=== PATIENT | female | born 1975 | race Two or more races ===

== ENCOUNTER 2020-05-18 10:14 | Inpatient (IN) | payer OTHER ==
[~2020-05-18] VITALS: Ht 157.5 cm; Wt 68.0 kg
== END 2020-05-20 21:55 | disposition home or self-care (01) | DRG 812 ==
LOC: ER 10:14 → SURG 18:58 → MEDI 05-19 16:33
PROVIDERS: ADMIT Internal Medicine; ATTEND Internal Medicine
PROC: 30233N1 Transfusion of Nonautologous Red Blood Cells into Peripheral Vein, Percutaneous Approach (ICD-10-PCS; principal; 2020-05-19)
DX: D50.0 Iron deficiency anemia secondary to blood loss (chronic) (principal); N92.1 Excessive and frequent menstruation with irregular cycle; R00.2 Palpitations; F41.9 Anxiety disorder, unspecified; Z20.822 Contact with and (suspected) exposure to COVID-19

== ENCOUNTER 2021-07-10 13:49 | Inpatient (IN) | payer OTHER ==
[~2021-07-10] VITALS: Ht 160 cm; Wt 52.6 kg
[2021-07-12] MEDS ORDERED: FAMOTIDINE40 MG (10:24)
[2021-07-12] MEDS ORDERED: ST. JOSEPH ASPI81 M2 (10:24)
== END 2021-07-13 23:34 | disposition home or self-care (01) | DRG 812 ==
LOC: ER 13:49 → MEDI 21:51
PROVIDERS: ADMIT Internal Medicine; ATTEND Internal Medicine
PROC: 30233N1 Transfusion of Nonautologous Red Blood Cells into Peripheral Vein, Percutaneous Approach (ICD-10-PCS; principal; 2021-07-11)
PROC: 4A12X4Z Monitoring of Cardiac Electrical Activity, External Approach (ICD-10-PCS; 2021-07-11)
DX: D64.9 Anemia, unspecified (principal); D50.0 Iron deficiency anemia secondary to blood loss (chronic); R55 Syncope and collapse; Z20.822 Contact with and (suspected) exposure to COVID-19

== ENCOUNTER 2021-07-19 17:01 | Inpatient (IN) | payer OTHER ==
[~2021-07-19] VITALS: Ht 157.5 cm; Wt 54.4 kg
[~2021-07-19 17:01] MED LIST: FAMOTIDINE40 MG; ST. JOSEPH ASPI81 M2
--- NOTE | 2021-07-19 17:27 | NUR ---
SE RECIBE PTE ALERTA Y ORIENTADA X3 LA CUAL REFIERE VENIR POR ISAIAH EN ORINA DESDE BELINDA. PTE NIEGA ARDOR O MOLESITA AL ORINAR. SE MIDEN S/V A PTE Y SE COLOCA EN GE[place]GES DE ESPERA.
--- NOTE | 2021-07-19 20:42 | NUR ---
SE REALIZA JILLIAN DE MUESTRAS A PACIENTE BAJO MEDIDAS SEPTICAS Y DE SEGURIDAD. SE ADMISNITRAN MEDICAMENTOS JESSICA ORDEN MEDICA. SE ORIENTA A PACIENTE ACERCA DEL TRATAMIENTO OFRECIDO EN GEORGES DE EMERGENCIAS. SE MANTIENE PACIENTE EN GOERGES DE ESPERA PENDIENTE A RESULTADOS DE LABORATORIOS.
--- NOTE | 2021-07-20 00:45 | NUR ---
SE RECIBE PTE FEMENINA DE 46 YRS LA CUAL SE LE DA MEDICMANTOS JESSICA ORDENADOS SE ACOMODA EN ZAHRAA CON BARABDA ELEVADA.Y EN ESPERA DE MEDICO CONSULTOR.DREW YUSUF.
== END 2021-07-27 16:12 | disposition home or self-care (01) | DRG 744 ==
LOC: ER 17:01 → MEDJ 07-20 07:57
PROVIDERS: Obstetrics & Gynecology; ADMIT Internal Medicine; ATTEND Internal Medicine
PROC: BT43ZZZ Ultrasonography of Bilateral Kidneys (ICD-10-PCS; 2021-07-20)
PROC: BW4GZZZ Ultrasonography of Pelvic Region (ICD-10-PCS; 2021-07-20)
PROC: BU4CZZZ Ultrasonography of Uterus and Ovaries (ICD-10-PCS; 2021-07-20)
PROC: BW21Y0Z Computerized Tomography (CT Scan) of Abdomen and Pelvis using Other Contrast, Unenhanced and Enhanced (ICD-10-PCS; 2021-07-21)
PROC: 05H933Z Insertion of Infusion Device into Right Brachial Vein, Percutaneous Approach (ICD-10-PCS; 2021-07-21)
PROC: BW3GZZZ Magnetic Resonance Imaging (MRI) of Pelvic Region (ICD-10-PCS; 2021-07-22)
PROC: BW3GYZZ Magnetic Resonance Imaging (MRI) of Pelvic Region using Other Contrast (ICD-10-PCS; 2021-07-22)
PROC: CW1N1ZZ Planar Nuclear Medicine Imaging of Whole Body using Technetium 99m (Tc-99m) (ICD-10-PCS; 2021-07-24)
PROC: 0UBC7ZX Excision of Cervix, Via Natural or Artificial Opening, Diagnostic (ICD-10-PCS; principal; 2021-07-24 14:00)
DX: N87.0 Mild cervical dysplasia (principal); N39.0 Urinary tract infection, site not specified; D58.8 Other specified hereditary hemolytic anemias; Z20.822 Contact with and (suspected) exposure to COVID-19; D50.0 Iron deficiency anemia secondary to blood loss (chronic); B96.29 Other Escherichia coli [E. coli] as the cause of diseases classified elsewhere; T80.89XA Other complications following infusion, transfusion and therapeutic injection, initial encounter
CPT/HCPCS: 72198